=== PATIENT | male | born 1965 | race Hispanic/Latino ===

== ENCOUNTER 2023-01-26 08:44 | Emergency (ER) | payer OTHER ==
[~2023-01-26] VITALS: Ht 170.2 cm; Wt 72.7 kg
[2023-01-26] VITALS (8 sets, daily range): BP systolic 111–123; BP diastolic 70–77
[2023-01-26] MEDS ORDERED: ROSUVASTATIN CA40 MG PO (09:39)
[2023-01-26] MEDS ORDERED: METFORMIN HCL1000 MG PO (09:41)
[2023-01-26 10:07] LABS: URINE BILIRUBIN - DIPSTICK NEGATIVE (NEGATIVE); URINE BLOOD DIPSTICK NEGATIVE (NEGATIVE); URINE CLARITY CLEAR; URINE COLOR YELLOW; URINE GLUCOSE - DIPSTICK >=1000 mg/dL (NEGATIVE); URINE KETONE NEGATIVE (NEGATIVE); URINE LEUK ESTERASE NEGATIVE (Negative); URINE NITRITE - DIPSTICK NEGATIVE (Negative); URINE PH 5.5 (4.5-8.0); URINE PROTEIN - DIPSTICK NEGATIVE (NEG-TRACE); URINE SPECIFIC GRAVITY 1.015; URINE UROBILINOGEN - DIPSTICK 0.2 E.U./dL (0.2)
== END 2023-01-26 12:03 | disposition home or self-care (01) | DRG 313 ==
LOC: ED 08:44 → EDBD 10:16 → ED 12:03
PROVIDERS: Family Medicine
DX: R07.89 Other chest pain (principal); I10 Essential (primary) hypertension; E78.5 Hyperlipidemia, unspecified; Z79.84 Long term (current) use of oral hypoglycemic drugs; E11.9 Type 2 diabetes mellitus without complications; V43.52XA Car driver injured in collision with other type car in traffic accident, initial encounter